=== PATIENT | male | born 1985 | race American Indian/Alaskan Native ===

== ENCOUNTER 2018-04-24 22:26 | Emergency (ER) | payer MEDICARE ==
[2018-04-24] MEDS ORDERED: ASPIRIN PO ONE (22:56)
[2018-04-24 23:57] LABS: Basophils % (Auto) 0.4 % (0.0-1.8); Eosinophils # (Auto) 0.3 K/mm3 (0.0-0.4); Eosinophils % (Auto) 2.2 % (0.0-4.3); Hematocrit 41.6 % (35.5-45.6); Hemoglobin 14.5 gm/dl (11.8-15.2); Lymphocytes # (Auto) 2.8 K/mm3 (1.2-5.4); Lymphocytes % (Auto) 23.3 % (13.4-35.0); Mean Corpuscular HGB Conc 35 % (32-34); Mean Corpuscular Hemoglobin 32 pg (28-32); Mean Corpuscular Volume 93 fl (84-94); Monocytes # (Auto) 0.7 K/mm3 (0.0-0.8); Monocytes % (Auto) 5.5 % (0.0-7.3); Platelet Count 213 K/mm3 (140-440); Red Blood Count 4.48 M/mm3 (3.65-5.03)
[2018-04-25 00:18] LABS: BUN/Creatinine Ratio 12; Blood Urea Nitrogen 14 mg/dL (9-20); Calcium 9.5 mg/dL (8.4-10.2); Hemolysis Index 160
--- NOTE | 2018-04-25 00:59 | XRay Report ---
FINAL REPORT PROCEDURE: XR CHEST 1V AP TECHNIQUE: Chest radiograph anteroposterior view. CPT 71681 HISTORY: chest pain COMPARISON: No prior studies are available for comparison. FINDINGS: Heart: Normal. Mediastinum/Vessels: Normal. Lungs/Pleural space: Normal. Bony thorax: No acute osseous abnormality. Life support devices: None. IMPRESSION: No acute cardiopulmonary abnormality.
[2018-04-25] MEDS ORDERED: ALUM-MAG HYDROX-SIMETH 200-200-20MG/5ML PO ONE (01:00)
[2018-04-25] MEDS ORDERED: LIDOCAINE VISCOUS 2% PO ONE (01:00)
[2018-04-25] MEDS ORDERED: DUONEB *Not for PRN Use IH ONE (01:54)
--- NOTE | 2018-04-25 02:00 | Emergency Department Report ---
ED Chest Pain HPI - General Chief Complaint: Chest Pain Stated Complaint: CHEST PAIN Time Seen by Provider: 04/25/18 00:39 Source: patient Mode of arrival: Ambulatory Limitations: No Limitations - History of Present Illness Initial Comments: 2 wks fo intermittent chest pain that radiates to the left arm. It is exertional, nonpleuritic, worse with food. He has a nonproductive cough and tactile fevers. Smokes cigarettes and drinks alcohol. Last did cocaine 5 days ago. No fam hx of ACS. Severity scale (0 -10): 6 - Related Data Home Medications Medication Instructions Recorded Confirmed Last Taken ALBUTEROL NEB's [Proventil 0.083%] 2.5 mg IH TID PRN 10/24/13 10/24/13 10/24/13 Allergies Allergy/AdvReac Type Severity Reaction Status Date / Time No Known Allergies Allergy Unverified 10/24/13 08:08 Heart Score - HEART Score History: Slightly suspicious EKG: Normal Age: < 45 Risk factors: 1-2 risk factors Troponin: < normal limit HEART Score: 1 ED Review of Systems ROS: Stated complaint: CHEST PAIN Other details as noted in HPI Comment: All other systems reviewed and negative Respiratory: cough Cardiovascular: chest pain ED Past Medical Hx - Past Medical History Previous Medical History?: Yes Hx Asthma: Yes - Surgical History Past Surgical History?: No - Social History Smoking Status: Current Every Day Smoker Substance Use Type: Alcohol, Marijuana - Medications Home Medications: Home Medications Medication Instructions Recorded Confirmed Last Taken Type ALBUTEROL NEB's [Proventil 0.083%] 2.5 mg IH TID PRN 10/24/13 10/24/13 10/24/13 History ED Physical Exam - General Limitations: No Limitations General appearance: alert, in no apparent distress - Head Head exam: Present: atraumatic, normocephalic - Eye Eye exam: Present: normal appearance - ENT ENT exam: Present: mucous membranes moist - Neck Neck exam: Present: normal inspection - Respiratory Respiratory exam: Present: normal lung sounds bilaterally. Absent: respiratory distress, chest wall tenderness - Cardiovascular Cardiovascular Exam: Present: regular rate, normal rhythm. Absent: systolic murmur, diastolic murmur, rubs, gallop - GI/Abdominal GI/Abdominal exam: Present: soft, normal bowel sounds. Absent: distended, tenderness, guarding, rebound, rigid - Rectal Rectal exam: Present: deferred - Extremities Exam Extremities exam: Present: normal inspection - Back Exam Back exam: Present: normal inspection - Neurological Exam Neurological exam: Present: alert, oriented X3 - Psychiatric Psychiatric exam: Present: normal affect, normal mood - Skin Skin exam: Present: warm, dry, intact, normal color. Absent: rash ED Course Vital Signs 04/24/18 04/25/18 04/25/18 22:51 00:31 01:00 Temperature 99.4 F 98.9 F Pulse Rate 98 H 92 H 89 Pulse Rate [ Bilateral Throughout] Respiratory 20 20 19 Rate Respiratory Rate [Bilateral Throughout] Blood Pressure 141/91 124/73 Blood Pressure 126/73 [Left] O2 Sat by Pulse 100 98 99 Oximetry 04/25/18 04/25/18 02:00 02:19 Temperature Pulse Rate 78 Pulse Rate [ 88 Bilateral Throughout] Respiratory 21 Rate Respiratory 19 Rate [Bilateral Throughout] Blood Pressure 119/79 Blood Pressure [Left] O2 Sat by Pulse 98 Oximetry - Reevaluation(s) Reevaluation #1: Pt was given a duoneb with no change in his breathing. Delta trop is neg. Perc neg. Unsure the exact cause of patient's chest pain. Low suspicion for emergent findings. Has been given ativan for possible cocaine induced chest pain. Will start patient on naprosyn and have him follow up with his pcp. I told him to stop using cocaine in the meantime. Pt is clear for discharge. 04/25/18 03:13 04/25/18 03:16 ED Medical Decision Making - Lab Data Result diagrams: 04/24/18 23:01 04/24/18 23:01 - EKG Data -: EKG Interpreted by Me EKG shows normal: sinus rhythm, axis, intervals, QRS complexes, ST-T waves Rate: normal - EKG Data Interpretation: no acute changes - Medical Decision Making 32 yo male with pmhx smoking, asthma, cocaine use that p/w chest pain. VSS. Pt is half asleep when I walk in. EKG is nonischemic. Heart score: 1. Low suspicion for ACS. Labs are unremarakble, including a troponin. CXR shows no acute process. He was given a gi cocktail with no improved. Next he will get a duoneb to see if this episode is related to his chest pain. - Differential Diagnosis ACS, pna, ptx, cocaine chest pain, asthma, gastritis Critical care attestation.: If time is entered above; I have spent that time in minutes in the direct care of this critically ill patient, excluding procedure time. ED Disposition Clinical Impression: Chest pain Disposition: DC-01 TO HOME OR SELFCARE Is pt being admited?: No Does the pt Need Aspirin: No Condition: Stable Instructions: Chest Pain (ED) Additional Instructions: Please follow up with your family doctor about your chest pain. In the meantime , take 500 mg aleve/naprosyn twice a day for the next week. It can be purchased over the counter. Referrals: MILO GUILLEN MD [Primary Care Provider] - 3-5 Days
[2018-04-25] MEDS ORDERED: ATIVAN PO ONE (03:16)
[2018-04-25] MEDS ORDERED: TYLENOL PO ONE (03:16)
[2018-04-25] MEDS ORDERED: MOTRIN PO ONE (03:16)
[2018-04-25 03:59] VITALS: BP 123/73
== END 2018-04-25 04:00 | disposition home or self-care (01) ==
LOC: ED 22:26
DX: R07.89 Other chest pain (principal); F17.200 Nicotine dependence, unspecified, uncomplicated; J45.909 Unspecified asthma, uncomplicated
CPT/HCPCS: 36415; 71045; 80048; 84484; 85025; 93005; 93010; 94640

== ENCOUNTER 2019-01-03 20:44 | Emergency (ER) | payer MEDICARE ==
[2019-01-03 21:22] VITALS: BP 132/93
[2019-01-03] MEDS ORDERED: TYLENOL PO ONE (21:57)
--- NOTE | 2019-01-03 22:24 | Emergency Department Report ---
HPI - General Chief Complaint: Extremity Problem,Nontraumatic Time Seen by Provider: 01/03/19 22:19 - HPI HPI: 33-year-old -[place]i male presents to the emergency department with complaint of some pain and swelling to the left ankle and lower leg that he thinks may have been from a spider bite. The symptoms of an going on for the past 2-3 days. However he did not see any particular spider or insect bite or sting him. He denies any recent travel, recent surgery, immobility. He has no pain to the calf. No past medical history. He did not take anything for her symptoms prior to presentation. He does not currently have a primary care ph ysician. ED Past Medical Hx - Past Medical History Previous Medical History?: Yes Hx Asthma: Yes - Surgical History Past Surgical History?: No - Social History Smoking Status: Current Every Day Smoker Substance Use Type: Alcohol - Medications Home Medications: Home Medications Medication Instructions Recorded Confirmed Last Taken Type ALBUTEROL NEB's [Proventil 0.083%] 2.5 mg IH TID PRN 10/24/13 10/24/13 10/24/13 History ALBUTEROL Inhaler (OR & NICU) 1 puff IH Q4H PRN #1 inha 04/25/18 Unknown Rx [ProAir HFA Inhaler] cephALEXin [Keflex] 500 mg PO Q8HR #9 cap 04/25/18 Unknown Rx Ibuprofen 800 mg PO Q8H PRN #20 tablet 01/03/19 Unknown Rx Sulfamethoxazole/Trimethoprim 1 each PO BID #14 tablet 01/03/19 Unknown Rx [Bactrim DS TAB] ED Review of Systems ROS: Stated complaint: LEFT LEG SWOLLEN/BIT BY SPIDER Other details as noted in HPI Comment: All other systems reviewed and negative Constitutional: denies: chills, fever Eyes: denies: eye pain, vision change ENT: denies: ear pain, throat pain Respiratory: denies: cough, shortness of breath Cardiovascular: denies: chest pain, palpitations Gastrointestinal: denies: abdominal pain, vomiting Genitourinary: denies: dysuria, discharge Musculoskeletal: myalgia. denies: back pain Skin: lesions. denies: pruritus Neurological: denies: headache, weakness Physical Exam - Physical Exam Vital Signs: Vital Signs 01/03/19 21:19 Temperature 98.8 F Pulse Rate 91 H Respiratory 22 Rate Blood Pressure 132/93 O2 Sat by Pulse 99 Oximetry Physical Exam: GENERAL: The patient is well-developed well-nourished. HEENT: Normocephalic. Atraumatic. Patient has moist mucous membranes. EYES: Extraocular motions are intact. NECK: Supple. Trachea is midline. CHEST/LUNGS: Clear to auscultation. There is no respiratory distress noted. HEART/CARDIOVASCULAR: Regular. There is no tachycardia. There is no obvious murmur. ABDOMEN: Abdomen is soft, nontender. Patient has normal bowel sounds. There is no abdominal distention. SKIN: There is some mild erythema to the medial distal left lower extremity. There are a few punctate areas that could be consistent with an insect bite/sting. No fluctuance, bleeding, discharge. NEURO: The patient is awake, alert, and oriented. The patient is cooperative. The patient has no focal neurologic deficits. The patient has normal speech. MUSCULOSKELETAL: There is some tenderness to palpation to the left distal medial tib-fib that appears consistent with a cellulitis. There is no limitation range of motion. ED Course Vital Signs 01/03/19 21:19 Temperature 98.8 F Pulse Rate 91 H Respiratory 22 Rate Blood Pressure 132/93 O2 Sat by Pulse 99 Oximetry ED Medical Decision Making - Medical Decision Making Patient presents with complaint of some pain to the left distal lower extremity where he thinks he was bitten by a spider. There are a few punctate areas that could be consistent with an insect bite or sting. There is no bleeding, discharge or fluctuance. There is some erythema and warmth and could be consistent with a mild cellulitis. There is some mild nonpitting swelling of the left lower extremity when compared to the right distally. He has no tenderness to palpation to the calves. He has no recent travel, no recent surgery or immobility and appears to suspicion for DVT. The patient will be placed on antibiotics and has been given a referral for primary care. He's been given a prescription for anti-inflammatories for discomfort. He will return to the ER with any worsening of symptoms or any acute distress. Critical Care Time: No Critical care attestation.: If time is entered above; I have spent that time in minutes in the direct care of this critically ill patient, excluding procedure time. ED Disposition Clinical Impression: Left leg cellulitis, Left leg pain Disposition: DC-01 TO HOME OR SELFCARE Is pt being admited?: No Condition: Stable Instructions: Cellulitis (ED), Insect Bite or Sting (ED) Additional Instructions: Please follow up with a primary care physician in the next few days. Return to the emergency Department with any worsening of her symptoms or any acute distress. Prescriptions: Sulfamethoxazole/Trimethoprim [Bactrim DS TAB] 1 each PO BID #14 tablet Ibuprofen 800 mg PO Q8H PRN #20 tablet PRN Reason: Pain , Severe (7-10) Referrals: TREE DANIELSON MD [Staff Physician] - 2-3 Days [facility] [Outside] - 2-3 Days Time of Disposition: 22:25
== END 2019-01-03 22:35 | disposition home or self-care (01) ==
LOC: ED 20:44
DX: L03.116 Cellulitis of left lower limb (principal); J45.909 Unspecified asthma, uncomplicated; F17.200 Nicotine dependence, unspecified, uncomplicated
CPT/HCPCS: 99282

== ENCOUNTER 2019-08-29 09:39 | Emergency (ER) | payer MEDICARE ==
[2019-08-29 09:53] VITALS: BP 137/80
--- NOTE | 2019-08-29 10:50 | XRay Report ---
CHEST 1 VIEW INDICATION: Chest Pain. COMPARISON: 04/25/2018 FINDINGS: Support devices: None. Heart: Within normal limits. Lungs/Pleura: No acute air space or interstitial disease. Additional findings: None. IMPRESSION: No acute findings. Signer Name: Ghassan Mcknight Jr, MD Signed: 08/29/2019 10:46 AM Workstation Name: [id number]
--- NOTE | 2019-08-29 12:50 | Emergency Department Report ---
ED General Adult HPI - General Chief complaint: Abdominal Pain Stated complaint: CHEST PAIN/HEADACHE/PAIN Time Seen by Provider: 08/29/19 10:35 Source: patient Mode of arrival: Ambulatory Limitations: No Limitations - History of Present Illness Initial comments: 34-year-old Citizen Of The [place] female presents to emergency department complaining of a few-day history of chest pain to his upper chest which he states is worse with deep breaths but reports no shortness of breath, no fever, chills, sweats no palpitations, no hemoptysis, no hematemesis nor hematochezia. Reports no wheezing, no coryza no flulike symptoms. The chest pain has been episodic in nature with no significant palliative or provocative factors. Radiation: non-radiation Severity scale (0 -10): 10 Consistency: constant Improves with: none Worsens with: none Treatments Prior to Arrival: none - Related Data Home Medications Medication Instructions Recorded Confirmed Last Taken ALBUTEROL NEB's [Proventil 0.083%] 2.5 mg IH TID PRN 10/24/13 10/24/13 10/24/13 Previous Rx's Medication Instructions Recorded Last Taken Type ALBUTEROL Inhaler (OR & NICU) 1 puff IH Q4H PRN #1 inha 04/25/18 Unknown Rx [ProAir HFA Inhaler] cephALEXin [Keflex] 500 mg PO Q8HR #9 cap 04/25/18 Unknown Rx Ibuprofen [Ibuprofen 800] 800 mg PO Q8H PRN #20 tablet 01/03/19 Unknown Rx Sulfamethoxazole/Trimethoprim 1 each PO BID #14 tablet 01/03/19 Unknown Rx [Bactrim DS TAB] Ketorolac [Toradol] 10 mg PO Q6H PRN #15 tablet 08/29/19 Unknown Rx Allergies Allergy/AdvReac Type Severity Reaction Status Date / Time No Known Allergies Allergy Verified 01/03/19 21:22 ED Review of Systems ROS: Stated complaint: CHEST PAIN/HEADACHE/PAIN Other details as noted in HPI Comment: All other systems reviewed and negative ED Past Medical Hx - Past Medical History Hx Asthma: Yes - Social History Smoking Status: Never Smoker Substance Use Type: None - Medications Home Medications: Home Medications Medication Instructions Recorded Confirmed Last Taken Type ALBUTEROL NEB's [Proventil 0.083%] 2.5 mg IH TID PRN 10/24/13 10/24/13 10/24/13 History ALBUTEROL Inhaler (OR & NICU) 1 puff IH Q4H PRN #1 inha 04/25/18 Unknown Rx [ProAir HFA Inhaler] cephALEXin [Keflex] 500 mg PO Q8HR #9 cap 04/25/18 Unknown Rx Ibuprofen [Ibuprofen 800] 800 mg PO Q8H PRN #20 tablet 01/03/19 Unknown Rx Sulfamethoxazole/Trimethoprim 1 each PO BID #14 tablet 01/03/19 Unknown Rx [Bactrim DS TAB] Ketorolac [Toradol] 10 mg PO Q6H PRN #15 tablet 08/29/19 Unknown Rx ED Physical Exam - General Limitations: No Limitations General appearance: alert, in no apparent distress - Head Head exam: Present: atraumatic, normocephalic - Eye Eye exam: Present: normal appearance, PERRL, EOMI Pupils: Present: normal accommodation - ENT ENT exam: Present: normal exam, normal orophraynx, mucous membranes moist - Neck Neck exam: Present: normal inspection, full ROM. Absent: tenderness, meningismus - Respiratory Respiratory exam: Present: normal lung sounds bilaterally. Absent: respiratory distress, wheezes, rales, rhonchi, stridor, accessory muscle use, decreased breath sounds, prolonged expiratory - Cardiovascular Cardiovascular Exam: Present: regular rate, normal rhythm. Absent: systolic murmur, diastolic murmur, rubs, gallop - GI/Abdominal GI/Abdominal exam: Present: soft, normal bowel sounds - Rectal Rectal exam: Present: deferred - Extremities Exam Extremities exam: Present: normal inspection - Back Exam Back exam: Present: normal inspection, full ROM. Absent: CVA tenderness (R), muscle spasm, paraspinal tenderness - Neurological Exam Neurological exam: Present: alert, oriented X3, CN II-XII intact, normal gait - Psychiatric Psychiatric exam: Present: normal affect, normal mood - Skin Skin exam: Present: warm, dry, intact, normal color. Absent: rash ED Course Vital Signs 08/29/19 09:53 Temperature 98.5 F Pulse Rate 85 Respiratory 16 Rate Blood Pressure 137/80 [Right] O2 Sat by Pulse 96 Oximetry ED Medical Decision Making - Radiology Data Radiology results: report reviewed (chest x-ray shows no acute processes) - Medical Decision Making This patient presents with chest pain that is very unlikely angina or acute coronary syndrome. The emergency department evaluation has not identified any cause for suspicion that this chest pain has a cardiac etiology. Based on their history, EKG (which showed no evidence of ischemia or infarction) and imaging, in addition to the patient's physical exam, I see no evidence at this time for a malignant etiology for the patient's chest pain. There is no acute evidence for pulmonary embolus, acute myocardial infarction, pneumothorax, Boerhaeve syndrome, cardiac tamponade, thoracic artery dissection, or any other emergent cardiac, pulmonary or aortic pathology. Given the low pre-test probability for cardiac etiology of chest pain and the absence of any sign of ischemia or infarction, discharge for outpatient follow-up and further evaluation is reasonable. I have explained to the patient that even though a cardiac problem is very un likely, follow-up and further testing is required to reduce further the already small uncertainty that exists. Other life-threatening diagnoses have been considered. The patient understands the need to return immediately if their symptoms worsen or they develop any new symptoms, and not to engage in any significant exertional activity until follow-up is obtained. Critical care attestation.: If time is entered above; I have spent that time in minutes in the direct care of this critically ill patient, excluding procedure time. ED Disposition Clinical Impression: Chest pain Disposition: DC-01 TO HOME OR SELFCARE Is pt being admited?: No Does the pt Need Aspirin: No Condition: Stable Instructions: Chest Pain (ED), Costochondritis (ED) Prescriptions: Ketorolac [Toradol] 10 mg PO Q6H PRN #15 tablet PRN Reason: Pain Referrals: VANESSA ALEXANDER MD [Primary Care Provider] - 3-5 Days Forms: Work/School Release Form(ED)
== END 2019-08-29 12:55 | disposition home or self-care (01) ==
LOC: ED 09:39
DX: R07.9 Chest pain, unspecified (principal); J45.909 Unspecified asthma, uncomplicated
CPT/HCPCS: 71045; 93005; 93010